=== PATIENT | female | born 1990 | race African-American/Black ===

== ENCOUNTER 2018-11-18 21:06 | Emergency (ER) | payer SELFPAY ==
[2018-11-18] MEDS ORDERED: Dexamethasone 4 MG TAB ONE (21:19)
== END 2018-11-18 22:27 | disposition home or self-care (01) ==
LOC: BURERS 21:06
DX: J45.901 Unspecified asthma with (acute) exacerbation (principal); K21.9 Gastro-esophageal reflux disease without esophagitis; F17.210 Nicotine dependence, cigarettes, uncomplicated
CPT/HCPCS: J7620; J8540